=== PATIENT | male | born 1970 | race Caucasian/White ===

== ENCOUNTER 2017-07-29 07:06 | Day surgery (SDC) | payer BC ==
--- NOTE | ~2017-07-29 | OP ---
PATIENT NAME: PARRISH MEDEL MEDICAL RECORD: [id number] :70 LOCATION:[facility] ADMISSION DATE: SURGEON: DAYO PENDLETON DPM DATE OF OPERATION: 07/29/2017 PREOPERATIVE DIAGNOSES: 1. Calcaneal spur, left foot. 2. Achilles tendon disruption, left foot. POSTOPERATIVE DIAGNOSES: 1. Calcaneal spur, left foot. 2. Achilles tendon disruption, left foot. PROCEDURE: 1. Gastroc recession, left leg. 2. Calcaneal spur removal, left posterior calcaneus. 3. Achilles repair, left leg. ANESTHESIA: General with preoperative popliteal block per the anesthesia department. HEMOSTASIS: Left thigh tourniquet at 350 mmHg. PREOPERATIVE DETAILS: The patient was taken to the OR and following induction of anesthesia, the patient was placed on the operating table in a prone position. The left extremity was then prepped and draped in usual aseptic technique followed by exsanguination and inflation of tourniquet. PROCEDURE NUMBER 1: Gastroc recession, left leg. A 15-blade was used to create a 3 cm linear incision over the posterior aspect of the aponeurosis of the left leg. The incision was deepened down through subcutaneous tissue bluntly aborting the sural nerve and vein. The paratenon was then acquired. A longitudinal incision was made and the aponeurosis was delivered. A 15 blade was used to make a cut through the aponeurosis with the foot in dorsiflexion. Once through the aponeurosis, there was adequate range of motion at the ankle joint. The wound was flushed and the skin was closed with skin devin. PROCEDURE NUMBER 2: Calcaneal spur removal, posterior left calcaneus. A 15 blade was used to create an incision over the posterior medial aspect of the left heel overlying the Achilles tendon insertion. The incision was deepened down through subcutaneous tissue to the Achilles tendon, which was freed from the soft tissue and subcutaneous tissue. A 15 blade was then used to detach the Achilles tendon noting there was significant calcaneal spurring and intratendinous ossifications noted. All the spurring was then resected with a sagittal saw as well as intratendinous calcifications, which were quite large. They were also dissected out of the Achilles tendon. The Achilles tendon, due to the large central ossicle, had a split down the middle. Once the ossicle was removed, it was repaired with 2-0 Vicryl. PROCEDURE NUMBER 3: Achilles tendon repair, left foot. Utilizing the incision as described into #2, the Achilles tendon was attached to the calcaneus utilizing a suture bridge technique with 4 anchors into the calcaneus with FiberWire to secure the Achilles tendon into the calcaneus. Excellent rigid fixation was noted. The foot was able to be put in dorsiflexion without interruption of the repair. The wound was flushed. The paratenon and deep OPERATIVE REPORT [id number] PARRISH MEDEL tissue were reapproximated with 2-0 Vicryl, the subcutaneous tissue with 4-0 Rapide, and the skin was closed with 4-0 Rapide in a subcuticular technique followed by Dermabond. Adaptic, 4 x 4, and Conform were used to dress the wound followed by application of a modified Pitts compression dressing. The tourniquet was deflated. POSTOPERATIVE DETAILS: The patient tolerated the procedure well and left the OR with vital signs stable and vascular status at preoperative levels. The patient was transported to recovery per anesthesia in stable condition. TRANSINT:[id number] Voice Confirmation ID: [id number] DOCUMENT ID: [id number] DAYO PENDLETON DPM at 1007 CC: [id number] DICTATION DATE: 07/29/17 1214 NURSE CASE MANAGEMENT: 07/29/17 1250 [facility] 07/29/[address] [id number]
[2017-07-29 07:54] LABS: BASOPHILS 0.5 % (0-2); EOSINOPHILS 1.3 % (0-7); HEMATOCRIT 47.3 % (42.0-54.0); IMMATURE GRANULOCYTES 0.2 % (0-5); LYMPHOCYTES 32.9 % (15-50); MCH 29.7 pg (26.0-34.0); MCHC 33.8 g/dL (31.0-37.0); MCV 87.8 fL (80.0-100.0); MEAN PLATELET VOLUME 10.8 fL (7.4-10.4); MONOCYTES 4.8 % (2-11); NEUTROPHILS 60.3 % (40-80); PLATELET COUNT 218 10x3/uL (130-400); RBC 5.39 10x6/uL (4.20-6.10); RDW 13.4 % (11.5-14.5)
[2017-07-29 08:01] LABS: CALC OSMOLALITY 273 mosm/kg (275-300); CALCIUM 9.5 mg/dL (8.5-10.1); CHLORIDE - SERUM 100 mmol/L (98-107); GLUCOSE 132 mg/dL (74-106); POTASSIUM - SERUM 4.1 mmol/L (3.5-5.1); SODIUM 136 mmol/L (136-145); UREA NITROGEN 13 mg/dL (7-18); eGFR NON AFRICAN AMERICAN 85 mL/min (90-120)
[2017-07-29] MEDS ORDERED: SYNTHROID175 MCG PO (08:02)
[2017-07-29] MEDS ORDERED: GLUCOPHAGE1000 MG PO (08:03)
[2017-07-29] MEDS ORDERED: GLUCOTROL 5 MG T5 MG PO (08:03)
[2017-07-29 08:04] LABS: INR 1.05 (0.85-1.17); PROTIME 13.3 SECONDS (11.6-15.0)
[2017-07-29] MEDS ORDERED: OMEPRAZOLE20 M1 PO (08:04)
[2017-07-29] MEDS ORDERED: VITAMIN D250000 UNIT PO (08:04)
[2017-07-29 08:05] LABS: APTT 31.7 SECONDS (22.8-39.4)
[2017-07-29] MEDS ORDERED: LISINOPRIL2.5 MG PO (08:05)
[2017-07-29] MEDS ORDERED: LOPRESSOR25 MG PO (08:05)
[2017-07-29] MEDS ORDERED: TESTOSTERON200 MG/ML IM (08:06)
[2017-07-29] MEDS ORDERED: FISH OIL 1,2001 CAP PO (08:07)
[2017-07-29] MEDS ORDERED: POTASSIUM99 M1 PO (08:07)
[2017-07-29 08:10] VITALS: BP 124/81; BMI 42.9
== END 2017-07-29 14:30 | disposition home or self-care (01) ==
LOC: D.OPS 07:06 → D.PAN 09:30 → D.OPS 14:30
PROVIDERS: Anesthesiology
DX: M77.32 Calcaneal spur, left foot (principal); S86.012A Strain of left Achilles tendon, initial encounter; X58.XXXA Exposure to other specified factors, initial encounter; Z01.812 Encounter for preprocedural laboratory examination